=== PATIENT | male | born 1990 | race Caucasian/White ===

== ENCOUNTER 2017-05-18 09:49 | Emergency (ER) | payer BC, SELFPAY ==
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
[2017-05-18 10:27] VITALS: BP 123/71; PULSE 72; RESP 18; TEMP 36.8; O2SAT 98; BMI 22.9
[2017-05-18 10:45] VITALS: BP 123/71; PULSE 72; RESP 18; TEMP 36.8; O2SAT 98
[2017-05-18 12:15] LABS: UTC Strep Screen (Rapid) Negative (Negative)
== END 2017-05-18 10:47 | disposition home or self-care (01) ==
PROVIDERS: Emergency Provider Physician Assistant
DX: J02.0 Streptococcal pharyngitis (principal)
CPT/HCPCS: 87880; 99202

== ENCOUNTER 2020-02-24 08:27 | Emergency (ER) | payer OTHER, SELFPAY ==
[2020-02-24 08:33] VITALS: BP 140/86; PULSE 91; RESP 16; TEMP 36.8; O2SAT 97
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
[2020-02-24 08:54] VITALS: BMI 28.7
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
[2020-02-24 09:06] VITALS: BP 135/88; PULSE 100; O2SAT 97
--- NOTE | 2020-02-24 09:07 | PC.NURSE ---
Pt to rad.
--- NOTE | 2020-02-24 09:29 | PC.NURSE ---
Pt returned from rad.
[2020-02-24 10:12] VITALS: BP 131/87; PULSE 89; RESP 16; TEMP 36.8; O2SAT 99
== END 2020-02-24 10:14 | disposition home or self-care (01) ==
PROVIDERS: Emergency Provider Emergency Medicine; PCP Internal Medicine Adolescent Medicine
DX: S60.222A Contusion of left hand, initial encounter (principal); S80.02XA Contusion of left knee, initial encounter; V47.0XXA Car driver injured in collision with fixed or stationary object in nontraffic accident, initial encounter; Y92.414 Local residential or business street as the place of occurrence of the external cause; F17.290 Nicotine dependence, other tobacco product, uncomplicated
CPT/HCPCS: 71045; 72170; 73130; 73564; 96374; 99281

== ENCOUNTER 2020-10-30 19:23 | Emergency (ER) | payer SELFPAY ==
[2020-10-30 21:10] VITALS: BP 0/0; PULSE 0; RESP 0; TEMP -17.7; TEMP 0
== END 2020-10-30 21:11 | disposition left against medical advice (07) ==
PROVIDERS: Emergency Provider Nurse Practitioner Family
DX: Z53.21 Procedure and treatment not carried out due to patient leaving prior to being seen by health care provider (principal)
CPT/HCPCS: 99202; G0463

== ENCOUNTER 2021-06-16 22:55 | Emergency (ER) | payer SELFPAY ==
[2021-06-16 22:56] VITALS: BP 153/88; PULSE 113; RESP 22; TEMP 36.7; O2SAT 97; BMI 26.5
[2021-06-16 23:01] VITALS: BP 153/88; PULSE 109; TEMP 36.7; O2SAT 98
[2021-06-16 23:02] VITALS: BP 153/88; PULSE 109; O2SAT 98
--- NOTE | 2021-06-16 23:12 | XR_ITS ---
PROCEDURE INFORMATION: Exam: XR Chest Exam date and time: 06/16/2021 11:22 PM Age: 30 years old Clinical indication: Shortness of breath; Additional info: SOA TECHNIQUE: Imaging protocol: XR of the chest. Views: 2 views. Total images: 2 COMPARISON: CR XR CHEST AP 02/24/2020 9:23 AM FINDINGS: Lungs: Normal pulmonary expansion. Pulmonary vasculature grossly normal. No gross pulmonary infiltrates or edema pattern. Pleural spaces: No pleural effusion. No pneumothorax. Heart/Mediastinum: Heart size normal. No tracheal/mediastinal shift. Bones/joints: No acute osseous abnormalities are identified. IMPRESSION: No acute thoracic process.
--- NOTE | 2021-06-16 23:14 | PC.NURSE ---
ER at bedside
--- NOTE | 2021-06-16 23:17 | HMH.EDALLER ---
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 The time I documented below is in addition to time spent performing reported procedures but includes the following listed in this critical care notation. Medical Decision Making - Medical Records Medical records reviewed: Yes: I reviewed the patient's medical records. - Mychal Inquiry Pt receiving controlled substance: No Vital Signs: 06/16/21 22:56 06/16/21 23:01 06/16/21 23:02 Temperature 98.0 F 98.0 F Temperature Source Oral Oral Pulse Rate 109 H 109 H Pulse Rate [Right Radial] 113 H Respiratory Rate 22 Blood Pressure 153/88 H 153/88 H Blood Pressure [Right Arm] 153/88 H Blood Pressure Mean [Right Arm] 109 Blood Pressure Source [Right Arm] Automatic Cuff Blood Pressure Position [Right Arm] Sitting 02 Sat by Pulse Oximetry 97 98 98 Oxygen Delivery Method Room Air Room Air Room Air 06/16/21 23:47 06/17/21 00:00 Temperature Temperature Source Pulse Rate 73 93 H Pulse Rate [Right Radial] Respiratory Rate Blood Pressure 109/61 L 121/72 Blood Pressure [Right Arm] Blood Pressure Mean [Right Arm] Blood Pressure Source [Right Arm] Blood Pressure Position [Right Arm] 02 Sat by Pulse Oximetry 93 L 96 Oxygen Delivery Method Room Air Room Air - Lab Data Lab results reviewed: Yes: I reviewed the patient's lab results. Lab Results 06/16/21 23:04: WBC 8.6, RBC 5.68, Hgb 16.9, Hct 51.9, MCV 91.3, MCH 29.7, MCHC 32.5, RDW 13.5, Plt Count 294, MPV 8.1, Neut % (Auto) 62.6, Lymph % (Auto) 24.3, Milam % (Auto) 7.7, Eos % (Auto) 3.6, Baso % (Auto) 1.8, Neut # (Auto) 5.4, Lymph # (Auto) 2.1, Milam # (Auto) 0.7, Eos # (Auto) 0.3, Baso # (Auto) 0.2, ESR 6 06/16/21 23:04: Sodium 143, Potassium 3.8, Chloride 106, Carbon Dioxide 23, Anion Gap 17.8 H, BUN 15, Creatinine 1.00, Estimated Creat Clear 129, Estimated GFR 88, Est GFR ( Amer) 107, Glucose 94, Calcium 9.5, Total Bilirubin 0.5, AST 23, ALT 22, Alkaline Phosphatase 53, C-Reactive Protein 0.8, Total Protein 7.9, Albumin 4.8, Globulin 3.1, Albumin/Globulin Ratio 1.5 Result diagrams: 06/16/21 23:04 06/16/21 23:04 Orders (Tests/Meds): ED MEDICATIONS Generic Name Dose Route Start Last Admin Trade Name Freq PRN Reason Stop Dose Admin Sodium Chloride 1,000 mls @ 999 mls/hr 06/16/21 23:15 06/16/21 23:15 Sod Chlor 0.9% 1000ml Bag IV 06/17/21 00:15 999 mls/hr .Q1H1M SHIRLEY Administration Sodium Chloride 8 ml 06/16/21 23:15 Sodium Chloride 0.9% 10ml Vial IV 07/16/21 23:14 NEEDED PRN dilute pepcid Discontinued Medications Generic Name Dose Route Start Last Admin Trade Name Freq PRN Reason Stop Dose Admin Diphenhydramine HCl 50 mg 06/16/21 23:15 06/16/21 23:17 Diphenhydramine 50mg/Ml Vial IV 06/16/21 23:16 50 mg ONCE ONE Administration Famotidine 20 mg 06/16/21 23:15 06/16/21 23:16 Famotidine 20mg/2ml Vial IV 06/16/21 23:16 20 mg ONCE ONE Administration Methylprednisolone Sodium Succinate 125 mg 06/16/21 23:15 06/16/21 23:17 Methylprednisolone Sod Succ 125mg Vial IV 06/16/21 23:16 125 mg ONCE ONE Administration Onda
[2021-06-16 23:19] LABS: Basophils # 0.2 K/mm3 (0-0.2); Basophils % 1.8 % (0.1-2.0); Eosinophils # 0.3 K/mm3 (0.0-0.4); Eosinophils % 3.6 % (0.1-12.0); Hematocrit 51.9 % (42.0-52.0); Hemoglobin 16.9 g/dL (14.1-18.0); Lymphocytes # 2.1 K/mm3 (0.7-4.5); Lymphocytes % 24.3 % (10-50); Mean Corpuscular HGB Conc 32.5 g/dL (31.8-35.4); Mean Corpuscular Hemoglobin 29.7 pg (27.0-31.2); Mean Corpuscular Volume 91.3 fl (80-94); Mean Platelet Volume 8.1 fl (7.4-10.4); Monocytes # 0.7 K/mm3 (0.1-1.0); Monocytes % 7.7 % (1.7-9.3); Neutrophils # 5.4 K/mm3 (1.8-7.8); Neutrophils % 62.6 % (37.0-80.0); Platelet Count 294 K/mm3 (142-424); Red Blood Count 5.68 M/mm3 (4.60-6.20); Red Cell Distribution Width 13.5 % (11.5-17.5); White Blood Count 8.6 K/mm3 (4.8-10.8)
[2021-06-16 23:25] LABS: Alanine Aminotransferase 22 U/L (12-78); Albumin Level 4.8 g/dl (3.5-5.0); Albumin/Globulin Ratio 1.5 (1.1-1.8); Alkaline Phosphatase 53 U/L (38-126); Anion Gap 17.8 mEq/L (5-15); Aspartate Amino Transferase 23 U/L (17-59); Bilirubin,Total 0.5 mg/dl (0.2-1.3); Blood Urea Nitrogen 15 mg/dl (9-20); Calcium 9.5 mg/dl (8.4-10.2); Carbon Dioxide 23 mmol/L (22.0-30.0); Chloride 106 mmol/L (98-107); Creatinine Clearance Estimated 129 mL/min (50-200); Estimated Glomerular Filt Rate 88 ml/min (>60); GFR (African American) 107 ML/MIN (>60); Globulin 3.1 g/dL (1.3-3.2); Glucose 94 mg/dl (74-100); Potassium 3.8 mmoL/L (3.5-5.1); Sodium 143 mmol/L (136-145); Total Protein,Serum 7.9 g/dl (6.3-8.2)
[2021-06-16 23:30] LABS: C-Reactive Protein 0.8 mg/L (0-4)
[2021-06-16 23:45] LABS: Erythrocyte Sedimentation Rate 6 mm/hr (0-15)
[2021-06-16 23:47] VITALS: BP 109/61; PULSE 73; O2SAT 93
[2021-06-17] VITALS: BP 121/72; PULSE 93; O2SAT 96
--- NOTE | 2021-06-17 00:04 | PC.NURSE ---
Pt sleeping when entering the room. When awake he states he feels much better.
[2021-06-17 01:00] VITALS: BP 105/57; PULSE 74; RESP 16; TEMP 36.7; O2SAT 96
== END 2021-06-17 01:05 | disposition home or self-care (01) ==
PROVIDERS: Emergency Provider Emergency Medicine
DX: T78.40XA Allergy, unspecified, initial encounter (principal); L50.9 Urticaria, unspecified
CPT/HCPCS: 71046; 80053; 85025; 85651; 86140; 96365; 96375; 99284; J2405

== ENCOUNTER 2022-03-08 12:41 | Emergency (ER) | payer BC, SELFPAY ==
[2022-03-08 12:45] VITALS: BP 130/82; PULSE 76; RESP 18; TEMP 36.6; O2SAT 98; BMI 23.1
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
[2022-03-08 13:40] VITALS: BP 130/82; PULSE 76; RESP 18; TEMP 36.6; O2SAT 98
== END 2022-03-08 13:42 | disposition home or self-care (01) ==
PROVIDERS: Emergency Provider Physician Assistant
DX: S41.112A Laceration without foreign body of left upper arm, initial encounter (principal)
CPT/HCPCS: 99212; G0463

== ENCOUNTER 2023-10-12 13:47 | Emergency (ER) | payer BC, SELFPAY ==
[2023-10-12 14:15] VITALS: BP 125/82; PULSE 52; RESP 20; TEMP 36.6; O2SAT 98; BMI 22.9
--- NOTE | 2023-10-12 14:49 | ED_ITS ---
Discharge Plan Disposition Patient Disposition: Home, Self-Care Condition: Good Prescriptions Prescriptions: New ibuprofen 600 mg tablet 600 mg PO Q6HP PRN (Reason: Moderate Pain) Qty: 20 0RF methylprednisolone [Medrol (Chucho)] 4 mg tablets,dose pack See Rx Instructions .Route .COMPLEX 6 Days Qty: 21 0RF Rx Instructions: taper pack; Referrals Follow up/Referrals: Provider,Referral, MD [Primary Care Provider] - See instructions Keegan Kate DO [Staff Physician] - See instructions Activity Restrictions/Add. Instructions Additional Instructions/Restrictions: Follow up with your Family Doctor if no improvement or any worsening of symptoms Over the counter Motrin and/or Tylenol for pain Follow up with Orthopedics if any worsening of symptoms or furhter evaluation Take medication as prescribed Clinical Impressions Clinical Impression: Elbow strain Instructions Patient Instructions: DI for Elbow Pain, How To Perform RICE (Rest, Ice, Compress, Elevate) Discharge ED Provider: Milagros Choudhury [facility] [place] General Stated complaint: hurt R arm couple moths ago Mode of Arrival: Ambulatory Source of Information: Patient Limitations: No Limitations Time Seen by Provider: 10/12/23 14:49 Description of Symptoms (Recalled from Triage Doc. by RN): PATIENT C/O ELBOW PAIN THAT RADIATES UP ARM AND STARTED APPROX 2 MONTHS AGO. NO KNOWN INJURY. ROM WNL. HEENT Symptoms (Recalled from RN notes): No Resp Symptoms (Recalled from RN notes): No Skin Symptoms (Recalled from RN notes): No MS Symptoms (Recalled from RN notes): Yes Functional Status (Recalled from RN notes): WNL History of Present Illness Provider Complaint: Patient states that he has been having pain in his right elbow for about 2 mths that started after he was swinging a hammer Not sure if he may have done something to hurt it or not but todya it was bothering him worse so he came in to get it checked Related Data Previous Rx's Medication Instructions Recorded ibuprofen 600 mg tablet 600 mg PO Q6HP PRN Moderate Pain 10/12/23 #20 tabs methylprednisolone 4 mg tablets in See Rx Instructions .Route 10/12/23 a dose pack (Medrol (Chucho)) .COMPLEX 6 days #21 tabs Allergies Allergy/AdvReac Type Severity Reaction Status Date / Time No Known Allergies Allergy Verified 02/24/20 09:54 Worker's Comp Is this a Worker's Comp case?: No [facility] Disclaimer: The information contained in this section may have been updated after the patient was seen, as this information can be updated by other users. Medical History (Updated 10/12/23 @ 15:45 by Milagros Choudhury APRN) History of gastroesophageal reflux (GERD) Migraine Asthma Social History (Updated 03/08/22 @ 13:10 by Janene Pérez RN) Smoking Status: Unknown if ever smoked alcohol intake: never current occupational status: employed Travel in the last 8 weeks: None housing: house ROS Obtained: Yes All systems reviewed & no additional complaints except as documented and Yes Systems reviewed as appropriate & no additional complaints except as documented Constitutional Constitutional: Reports system reviewed and no additional complaints, except as documented and Reports as per HPI ENT Ears, Nose, Mouth, and Throat: Reports system reviewed and no additional complaints, except as documented and Reports as per HPI Cardiovascular Cardiovascular: Reports system reviewed and no additional complaints, except as documented and Reports as per HPI Respiratory Respiratory: Reports system reviewed and no additional complaints, except as documented and Reports as per HPI Gastrointestinal Gastrointestingal: Reports system reviewed and no additional complaints, except as documented and as per HPI Musculoskeletal Musculoskeletal: Reports system reviewed and no additional complaints, except as documented, Reports as per HPI and Reports other (Pain in right elbow worse with movement denies known injury) Physical Exam General General appearance: alert and in no apparent distress ENT ENT exam: Present mucous membranes moist Respiratory Respiratory exam: Present normal lung sounds bilaterally; Absent respiratory distress or wheezes Cardiovascular Cardiovascular exam: Present regular rate, normal rhythm and normal heart sounds Expanded Upper Extremity Exam Right: Elbow exam: Present tenderness; Absent swelling, abrasion, laceration, ecchymosis, dislocation or erythema Forearm/Wrist exam: Present normal inspection Hand exam: Present normal inspection Neurological Exam Neurological exam: Present alert, oriented X3 and normal gait Medical Decision Making Mychal Inquiry Pt receiving controlled substance: No Mychal was queried for this patient: No Vital Signs: 10/12/23 14:15 Temperature 97.8 F Temperature Source Oral Pulse Rate [Left Brachial] 52 L Respiratory Rate 20 Blood Pressure [Left Arm] 125/82 Blood Pressure Mean [Left Arm] 96 Blood Pressure Source [Left Arm] Automatic Cuff Blood Pressure Position [Left Arm] Sitting 02 Sat by Pulse Oximetry 98 Oxygen Delivery Method Room Air Radiology Data #1: Image(s): Elbow Image Reviewed: Yes I have reviewed radiologist's interpretation IMPRESSION: 1. No acute findings. 2. Additional findings as above.
--- NOTE | 2023-10-12 14:52 | XR_ITS ---
PROCEDURE INFORMATION: Exam: XR Right Elbow Exam date and time: 10/12/2023 2:51 PM Age: 33 years old Clinical indication: Pain; Elbow; Right; Additional info: Pain in elbow no known injury TECHNIQUE: Imaging protocol: Radiologic exam of the right elbow. Views: 3 or more views. COMPARISON: No relevant prior studies available. FINDINGS: Bones/joints: Likely secondary ossification center versus old trauma at the distal olecranon. Soft tissues: Normal. IMPRESSION: 1. No acute findings. 2. Additional findings as above.
[2023-10-12 15:47] VITALS: BP 125/82; PULSE 52; RESP 20; TEMP 36.6; O2SAT 98
== END 2023-10-12 15:51 | disposition home or self-care (01) ==
PROVIDERS: Emergency Provider Nurse Practitioner
DX: S56.911A Strain of unspecified muscles, fascia and tendons at forearm level, right arm, initial encounter (principal); M25.521 Pain in right elbow; X50.0XXA Overexertion from strenuous movement or load, initial encounter
CPT/HCPCS: 73080; 99212; 99214; G0463